=== PATIENT | male | born 1940 | race Caucasian/White ===

== ENCOUNTER 2018-08-01 03:40 | Emergency (ER) | payer OTHER ==
[2018-08-01 04:54] LABS: ADD MAN DIFF? NO
[2018-08-01 04:55] LABS: BASOPHILS % 0.1 % (0.0-2.0); HEMATOCRIT 37.6 % (42.0-52.0); LYMPHOCYTES # 1.9 10^3/ul (0.8-2.9); LYMPHOCYTES % 18.7 % (15.0-51.0); MEAN CORPUSCULAR HEMOGLOBIN 30.6 pg (29.0-33.0); MEAN CORPUSCULAR HGB CONC 31.9 g/dl (32.0-37.0); MEAN CORPUSCULAR VOLUME 95.9 fl (82.0-101.0); MEAN PLATELET VOLUME 11.2 fl (7.4-10.4); MONOCYTE # 0.6 10^3/ul (0.3-0.9); MONOCYTES % 6.3 % (0.0-11.0); NEUTROPHIL # 7.5 10^3/ul (1.6-7.5); NEUTROPHILS % 74.5 % (39.0-77.0); PLATELET COUNT 107 10^3/UL (140-415); RED BLOOD COUNT 3.92 10^6/ul (4.70-6.10); RED CELL DISTRIBUTION WIDTH 16.7 % (11.5-14.5)
[2018-08-01 05:13] LABS: ANION GAP 15 (8-16); BLOOD UREA NITROGEN 41 mg/dl (7-20); CARBON DIOXIDE 27 mmol/L (21-31); CHLORIDE 106 mmol/L (97-110); GLUCOSE 134 mg/dl (70-220); POTASSIUM 3.9 mmol/L (3.5-5.1); SODIUM 144 mmol/L (135-144)
[2018-08-01 05:26] LABS: B-TYPE NATRIURETIC PEPTIDE 7770 PG/ML (0-450)
[2018-08-01] MEDS: ASPIRIN 325 MG TAB PO (05:29)
[2018-08-01] MEDS: FUROSEMIDE 20 MG INJ IV (05:29)
[2018-08-01 05:53] LABS: TROPONIN-I 0.519 ng/ml (0.000-0.120)
[2018-08-01] MEDS: HEPARIN 1000 UNITS/ML 10 ML INJ IV (06:12)
[2018-08-01] MEDS: IPRATROPIUM (NEB) 0.5 MG/2.5 ML AMP HHN (07:37)
[2018-08-01] MEDS: LEVALBUTEROL (NEB) 1.25 MG/0.5 ML AMP HHN (07:37)
[2018-08-01 07:58] LABS: INR 1.42; PROTIME 17.6 Sec (11.9-14.9); PT RATIO 1.4
[2018-08-01 08:13] LABS: PARTIAL THROMBOPLASTIN TIME > 180.0 Sec (23.0-35.0)
[2018-08-01] MEDS: HEPARIN 25000 UNITS/250 ML 250 ML IV (08:13)
== END 2018-08-01 08:20 | disposition short-term general hospital (02) ==
LOC: E/R 03:40
DX: I21.4 Non-ST elevation (NSTEMI) myocardial infarction (principal); I44.7 Left bundle-branch block, unspecified; N19 Unspecified kidney failure; I50.9 Heart failure, unspecified; J44.1 Chronic obstructive pulmonary disease with (acute) exacerbation; G30.9 Alzheimer's disease, unspecified; I10 Essential (primary) hypertension; Z98.61 Coronary angioplasty status
CPT/HCPCS: 36415; 71045; 80048; 83880; 84484; 85025; 85610; 85730; 93005; 94664; 96372; 96374; 96375; 99285-25